=== PATIENT | female | born 1945 | race Caucasian/White ===

== ENCOUNTER 2025-07-20 09:40 | Emergency (ER) | payer MEDICARE, OTHER, SELFPAY ==
[2025-07-20 09:53] VITALS: BP 146/65; PULSE 86; RESP 16; TEMP 36.6; O2SAT 99
--- NOTE | 2025-07-20 10:42 | ED.GENADULT ---
HPI - General Adult General Chief complaint: Unspecified Stated complaint: NEEDS PRESCRIPTION REFILLS Source: patient Mode of arrival: ambulatory Limitations: no limitations History of Present Illness HPI narrative: Patient presents requesting medication refills. She recently moved to the area and is attempting to establish care with a new provider. She is currently on a cancellation list tried to be seen sooner than her current scheduled appointment which is in the middle of August. She has not run out of the requested medications yet. She denies any chest pain or SOB. Related Data Home Medications ?Medication ?Instructions ?Recorded ?Confirmed ?Last Taken ?Type Saccharomyces boulardii 1 tablet PO DAILY 07/20/25 07/20/25 Unknown History amlodipine 5 mg-benazepril 10 mg 1 cap PO DAILY 07/20/25 07/20/25 Unknown History capsule aspirin 81 mg tablet,delayed 81 mg PO DAILY 07/20/25 07/20/25 Unknown History release (Adult Aspirin Regimen) calcium 600 mg (as 1 tablet PO DAILY 07/20/25 07/20/25 Unknown History carbonate)-vitamin D3 5 mcg (200 unit) tablet (Calcium 600 + D(3)) ezetimibe 10 mg tablet 10 mg PO DAILY 07/20/25 07/20/25 Unknown History fenofibrate nanocrystallized 145 145 mg PO DAILY 07/20/25 07/20/25 Unknown History mg tablet multivitamin (Daily Multi-Vitamin 1 tablet PO DAILY 07/20/25 07/20/25 Unknown History tablet) omega-3 fatty acids 600 mg PO DAILY 07/20/25 07/20/25 Unknown History pravastatin 10 mg tablet 10 mg PO DAILY 07/20/25 07/20/25 Unknown History Allergies Allergy/AdvReac Type Severity Reaction Status Date / Time No Known Allergies Allergy Verified 07/20/25 09:51 Review of Systems Review of Systems: CONSTITUTIONAL: Denies fever, chills, or sweats. EYES: Denies visual changes, redness, or discharge. ENT: Denies rhinorrhea, congestion, sore throat, or otalgia. CARDIOVASCULAR: Denies chest pain, palpitations, or edema. RESPIRATORY: Denies cough or dyspnea. GASTROINTESTINAL: Denies abdominal pain, nausea, vomiting, or diarrhea. GENITOURINARY: Denies dysuria or hematuria. SKIN: Denies rash or itching. MUSCULOSKELETAL: Denies back pain, joint pain, or myalgia. NEUROLOGIC: Denies headache, numbness, dizziness, or weakness. PSYCHIATRIC: Denies anxiety or depression. [facility] Past Medical History Medical History Hyperlipidemia Hypertension Surgical History Surgical History History of cholecystectomy Family History Family History Mother Family history non-contributory Social History Social History Smoking status: Never smoker Gender identity (if verbalized by the patient): Female Sexual Orientation (if Verbalized by the Patient): Straight or Heterosexual Spiritual care concerns: No Exam Narrative: GENERAL: Well-appearing, well-nourished, and in no acute distress. HEAD: Normocephalic, atraumatic. EYES: PERRLA and EOMI. ENT: Nares clear, no rhinorrhea or epistaxis. Mucous membranes moist. Oropharynx without tonsillar hypertrophy exudate or other lesions. Bilateral TMs pearly parkinson nonbulging NECK: Supple. No adenopathy or masses. No carotid bruits or JVD CHEST: Clear to auscultation. No respiratory distress. No wheezes rales or rhonchi HEART: Regular rate and rhythm. No murmur heard. Normal peripheral pulses. ABDOMEN: Soft, nontender, nondistended, normal active bowel sounds. EXTREMITIES: Normal range of motion. No edema. SKIN: Warm, dry, no rash. NEURO: No focal deficits. Alert and oriented x3. PSYCH: Normal mood and affect. Course Course Emergency Course: This is a 80-year-old female who presented for medication refills. Her request is reasonable. Medication will be sent for 30 days. She should follow-up with her primary care provider as currently planned. In the event that she has chest pain or shortness of breath, she should go to the emergency department. Patient in agreement with plan of care. Level of Care: Express Care Visit Vital Signs Vital signs: Vital Signs Temperature 36.6 C 07/20/25 09:53 Pulse Rate 86 07/20/25 09:53 Respiratory Rate 16 10/15/25 09:53 Blood Pressure 146/65 H 07/20/25 09:53 Pulse Oximetry 99 07/20/25 09:53 Temperature 36.6 C 07/20/25 09:53 Pulse Rate 86 07/20/25 09:53 Respiratory Rate 16 07/20/25 09:53 Blood Pressure 146/65 H 07/20/25 09:53 Pulse Oximetry 99 07/20/25 09:53 Medical Decision Making Vital Signs Vital Signs: Vital Signs Temperature 36.6 C 07/20/25 09:53 Pulse Rate 86 07/20/25 09:53 Respiratory Rate 16 07/20/25 09:53 Blood Pressure 146/65 H 07/20/25 09:53 Pulse Oximetry 99 07/20/25 09:53 Temperature 36.6 C 07/20/25 09:53 Pulse Rate 86 07/20/25 09:53 Respiratory Rate 16 07/20/25 09:53 Blood Pressure 146/65 H 07/20/25 09:53 Pulse Oximetry 99 07/20/25 09:53 Discharge Plan Discharge Clinical Impression: Medication refill Patient Disposition: Home Condition: Stable Instructions: Antibiotic Form, Medicine Refill (ED) Patient Language: [place] Prescriptions: New pravastatin 10 mg tablet 10 mg PO DAILY Qty: 30 0RF amlodipine-benazepril 5-10 mg capsule 1 cap PO DAILY Qty: 30 0RF ezetimibe 10 mg tablet 10 mg PO DAILY Qty: 30 0RF fenofibrate nanocrystallized 145 mg tablet 145 mg PO DAILY Qty: 30 0RF No Action pravastatin 10 mg tablet 10 mg PO DAILY amlodipine-benazepril 5-10 mg capsule 1 cap PO DAILY ezetimibe 10 mg tablet 10 mg PO DAILY calcium carbonate-vitamin D3 [Calcium 600 + D(3)] 600 mg-5 mcg (200 unit) tablet 1 tablet PO DAILY multivitamin [Daily Multi-Vitamin] Tablet 1 tablet PO DAILY omega-3 fatty acids Capsule 600 mg PO DAILY aspirin [Adult Aspirin Regimen] 81 mg tablet,delayed release (DR/EC) 81 mg PO DAILY Saccharomyces boulardii [Daily Probiotic (S. boulardii)] 1 tablet PO DAILY fenofibrate nanocrystallized 145 mg tablet 145 mg PO DAILY Follow-up/Referrals: Elio,MD Tiffanie [Primary Care Provider, Unknown] Time of Disposition: 10:44
== END 2025-07-20 10:46 | disposition home or self-care (01) ==
PROVIDERS: Emergency Provider Nurse Practitioner; PCP Internal Medicine
DX: Z76.0 Encounter for issue of repeat prescription (principal); I10 Essential (primary) hypertension; E78.5 Hyperlipidemia, unspecified; Z79.82 Long term (current) use of aspirin
CPT/HCPCS: 99202; G0463